=== PATIENT | male | born 1975 | race Caucasian/White ===

== ENCOUNTER 2017-02-24 11:50 | Emergency (ER) | payer MEDICAID ==
[2017-02-24 12:12] VITALS: BP 133/85
[2017-02-24] MEDS ORDERED: HYDROcodone/ACETAMINOPHEN 1 EACH TABLET ONE (12:58)
[2017-02-24] MEDS: HYDROcodone/ACETAMINOPHEN 1 EACH TABLET PO ONE (12:59)
--- NOTE | 2017-02-24 13:11 | ERNOTE ---
Head Injury HPI - Narrative Date of Service: 02/24/17 - General Injury to: lip Time Seen by Provider: 02/24/17 12:06 Source: patient, RN notes reviewed Exam Limitations: no limitations - Immun/Allergies/Home Medications Immunization: IMMUNIZATION HX Immunizations Up to Date Yes History of Influenza Vaccine No Hx Pneumococcal Vaccination No Allergies/Adverse Reactions: Allergies Allergy/AdvReac Type Severity Reaction Status Date / Time No Known Allergies Allergy Unverified 07/04/14 01:39 Home Medications: HOME MEDICATIONS Clindamycin HCl [Cleocin HCl] 300 mg PO TID #30 capsule 07/04/14 [Last Taken Unknown] PARoxetine HCL [Paxil] 30 mg PO DAILY 07/04/14 [Last Taken Unknown] buPROPion HCL [Wellbutrin] 300 mg PO DAILY 07/04/14 [Last Taken Unknown] oxyCODONE HCL/ACETAMINOPHEN [Percocet 5 MG/325 MG] 1 tab PO Q4H #30 tablet 07/04 [Last Taken Unknown] Chlorhexidine Gluconate [Paroex] 473 ml MM QID #473 ml 02/24/17 [Last Taken Unknown] HYDROcodone/ACETAMINOPHEN [Muddy 5-325] 1 - 2 tab PO Q6H PRN #16 tab 02/24/17 [ Last Taken Unknown] - History of Present Illness Narrative: 41 year old male with an upper lip laceration due to being struck in the mouth with a chunk of wood while chopping wood. Occurred: just prior to arrival Location Occurred: home Head Injury Location: facial Method of Injury: Reports: direct blow Loss of Consciousness: Reports: no loss of consciousness, remembers event, remembers coming to hospital Associated Symptoms: Denies: other injuries Review of Systems - Review of Systems Constitutional: Absent: recent illness, fever EYE: Absent: eye pain, vision changes ENT: Absent: ear pain, nasal drainage, sore throat Respiratory: Absent: shortness of breath, cough Cardiology: Absent: chest pain, syncope Gastrointestinal/Abdominal: Absent: nausea, vomiting Genitourinary: Present: no symptoms reported Musculoskeletal: Absent: muscle pain, joint pain Skin: Absent: lesions, lumps, change in color Neurological: Absent: headache, dizziness/light-headedness Endocrine: Present: no symptoms reported Hematologic/Lymphatic: Absent: easy bruising, easy bleeding Psych: Present: no symptoms reported - Patient's Past Medical History Patient History - Medical: No pertinent hx Patient History - Cardiac/Respiratory: No pertinent hx Patient History - Cancer: No Hx of Cancer Patient History - Surgical Procedures: Orthopedic Patient History - Other: None - Social History Living Situations: home Abuse History: No History of abuse Psych History: No pertinent hx Smoking Status: Former smoker Alcohol Use: rarely Drug Use: none - Immunizations Immunizations Up to Date: Yes Hx Pneumococcal Vaccination: No History of Influenza Vaccine: No Physical Exam - Physical Exam General Appearance: Present: wd/wn, alert, mild distress, anxious Head Exam: Present: lacerations - Upper lip, swelling - upper lip, tenderness - upper lip. Absent: active bleeding, Adamson's Sign, ecchymosis, raccoon eyes Eye Exam: Normal inspection: bilateral, PERRL: bilateral Ears, Nose, Throat: Present: normal except - - lip laceration Neck: Present: normal inspection, nontender, supple Respiratory: Present: no respiratory distress, normal breath sounds, lungs clear Cardiovascular/Chest: Present: regular rate, rhythm, no murmur Extremity Exam: Present: normal inspection, normal range of motion Neurological Exam: Present: alert, oriented, normal mood/affect, no motor/ sensory deficits Skin Exam: Present: normal color, warm/dry ED Progress - Vital Signs Patient's Vital Signs:: I have reviewed the patient's vital signs. Vital Signs: Vital Signs 02/24/17 12:06 Temperature 36.7 C Pulse Rate 89 Respiratory 18 Rate Blood Pressure 133/85 O2 Sat by Pulse 98 Oximetry - Progress/Reassessment Chief Complaint: Facial Injury Progress:: Improved Procedures Inside upper lip Anesthesia: Lidocaine w/ Epi I & D Prep: sterile drapes applied Length of Repair/Wound (cm): 2 Wound's Depth/Shape: irregular, flap, contused tissue Wound Explored: clean, to base, in bloodless field, no foreign body Wound Intervention: irrigated w/saline Distal NVT: neuro/vasc intact Suture Size/Type: 5-0, prolene Layer Closure: Simple Complications: Pt srinivas procedure well Departure Clinical Impression: Lip laceration Qualifiers: Encounter type: initial encounter Qualified Code(s): S01.511A - Laceration without foreign body of lip, initial encounter - Departure Disposition: Home self-care Condition: Good Instructions: Mouth Laceration Prescriptions: Chlorhexidine Gluconate [Paroex] 473 ml MM QID #473 ml HYDROcodone/ACETAMINOPHEN [Muddy 5-325] 1 - 2 tab PO Q6H PRN #16 tab PRN Reason: Pain
== END 2017-02-24 13:00 | disposition home or self-care (01) ==
LOC: ER 11:50
PROC: 0CQ0XZZ Repair Upper Lip, External Approach (ICD-10-PCS; principal; 2017-02-24)
DX: Y93.89 Activity, other specified; Y92.009 Unspecified place in unspecified non-institutional (private) residence as the place of occurrence of the external cause; X58.XXXA Exposure to other specified factors, initial encounter; S01.511A Laceration without foreign body of lip, initial encounter
CPT/HCPCS: 12011; 99284